=== PATIENT | female | born 1960 | race Caucasian/White ===

== ENCOUNTER 2020-01-05 09:05 | Emergency (ER) | payer SELFPAY ==
[2020-01-05 09:08] VITALS: BP 172/120; PULSE 97; RESP 16; TEMP 36.6; O2SAT 97; BMI 29.2
--- NOTE | 2020-01-05 09:21 | ECG_ITS ---
Measurements Intervals [place] Rate: 103 P: 34 WV: 142 QRS: 45 QRSD: 77 T: 56 QT: 328 QTc: 430 SINUS TACHYCARDIA Compared to ECG 11/08/2018 22:04:28 Sinus rhythm no longer present Electronically Signed On 01-05-2020 14:07:25 HEAT TREAT INSPECTOR by Pauline Alvarez M.D. [email or web address]
--- NOTE | 2020-01-05 09:22 | XR_ITS ---
WS: [id number] XR chest 1V portable [id number] REASON FOR EXAM: admission FINDINGS: The heart and mediastinal interfaces are normal. The lung fischer are well aerated. There is no pneumonia, pleural effusion, pulmonary edema, or mass e ffect. The hilum and apices are normal. No osseous abnormalities. XR/XR chest 1V portable [id number] IMPRESSION: No active cardiopulmonary changes.
--- NOTE | 2020-01-05 09:24 | W.ED.CHESTPA ---
HPI - Chest Pain General: Chief Complaint: Chest Pain Stated Complaint: CP, H/A Time Seen by Provider: 01/05/20 09:10 History of Present Illness: HPI narrative: Patient presents here with chest pain headache. She has had the symptoms for approximately 2 to 1/2 days. Just had a recent medication change her hydrochlorothiazide was added to her losartan. Patient also stopped her anxiety medicine for a while and then started retaking it back yesterday. Patient also says that her reflux medication is not working for her and she has daily reflux. Said she feels tingly in her lips and her her fingers and feet. Says her blood pressures been going up by the end the day. MD complaint: chest pain Pertinent past history: coronary artery disease Onset (ago): day(s) (2) Associated symptoms: Deny abdominal pain, dyspnea, fever(s), nausea or vomiting Review of Systems Const: Denies: fever, chills or body aches Eyes: Denies: change in vision or blurry vision ENMT: Denies: throat pain or nasal congestion Card: Reports: chest pain and swelling of feet/ankles; Denies: shortness of breath on exertion Resp: Denies: shortness of breath, productive cough or non-productive cough GI: Reports: heartburn/indigestion; Denies: abdominal pain, nausea or vomiting Musc: Denies: extremity pain Skin/Breast: Denies: rash Neuro: Denies: headache Psych: Reports: other (Tingling); Denies: anxiety or depression Luke/Lymph: Denies: easy bruising PFSH ED PFSH: Social History Smoking and tobacco status: former smoker Physical Exam Const: COMMON NORMALS: no apparent distress, average body habitus and oriented x3 HENMT: COMMON NORMALS: normocephalic HEAD & SCALP: normal to inspection and normocephalic FACE & SINUS: normal facial exam Eye: COMMON NORMALS: conjunctivae normal GENERAL EYE: normal appearance of both eyes CONJUNCTIVA: Yes conjunctivae normal Neck/C-Spine: COMMON NORMALS: no JVD Chest: COMMONS NORMALS: inspection of chest normal Resp: COMMON NORMALS: normal respiratory effort and clear to auscultation bilaterally AUSCULTATION: clear to auscultation bilaterally Cardio: COMMON NORMALS: no JVD, regular rate and regular rhythm RATE: regular rate RHYTHM: regular rhythm GI: COMMON NORMALS: normal to inspection, nondistended, normoactive bowel sounds Extremity: COMMON NORMALS: normal to inspection and full ROM Neuro: COMMON NORMALS: oriented x3 Course Vital Signs: Vital signs: Vital Signs Temperature 98 F 01/05/20 09:08 Pulse Rate 97 01/05/20 09:08 Respiratory Rate 16 01/05/20 09:08 Blood Pressure 172/120 01/05/20 09:08 Pulse Oximetry 98 01/05/20 09:27 MDM - Chest Pain MDM Narrative: Medical decision making narrative: heart score,-1-2. discussed case with Dr. Isidro Lab Data: Labs: Lab Results 01/05/20 01/05/20 01/05/20 Range/Units 09:24 09:24 09:24 WBC 6.3 (4.0-10.0) 10^3/ uL RBC 4.60 (4.1-5.3) 10^6/u L Hgb 13.8 (11.5-15.3) g/dL Hct 41.6 (37.0-47.0) % MCV 90.4 (81-99) fL MCH 30.0 (28.0-34.0) pg MCHC 33.2 (30.0-36.0) g/dL RDW 11.9 L (12.1-15.1) % Plt Count 284 (130-400) 10^3/c mm MPV 9.2 (7.4-10.4) fL Neut % (Auto) 62.5 % Lymph % (Auto) 28.3 % [place] % (Auto) 4.8 % Eos % (Auto) 3.4 % Baso % (Auto) 0.5 % Neut # (Auto) 3.9 (1.8-7.7) 10^3/u L Lymph # (Auto) 1.8 (0.8-4.8) 10^3/u L [place] # (Auto) 0.3 (0.2-0.9) 10^3/u L Eos # (Auto) 0.2 (0.0-0.8) 10^3/u L Baso # (Auto) 0.0 (0.0-0.1) 10^3/u L Nucleated RBC % (a uto) 0 % Nucleated RBCs # 0.0 /100WBC Sodium 137 (136-145) mmol/L Potassium 3.8 (3.5-5.1) mmol/L Chloride 97 L (98-107) mmol/L Carbon Dioxide 26 (22-29) mmol/L Anion Gap 17.8 (5-19) BUN 15 (6-20) mg/dL Creatinine 0.6 (0.5-0.9) mg/dL GFR Calculation 102.3 (90-130) mL/min Glucose 117 H (65-115) mg/dL Calcium 10.0 (8.5-10.5) mg/dL Total Bilirubin 0.4 (0.15-1.2) mg/dL AST 35 H (0-32) U/L ALT 69 H (0-33) U/L Alkaline Phosphata se 103 (35-105) IU/L Troponin T Baselin e 6 (0-10) ng/mL Total Protein 7.9 (6.6-8.7) g/dL Albumin 4.3 (3.5-5.2) g/dL Globulin 3.6 (1.3-4.6) g/dL EKG Data^: EKG 1: EKG interpretation date: 01/05/20 EKG interpretation time: 09:17 Interpretation: Sinus tachy, 103 bpm, AK-142, qrs 77ms EKG 2: EKG interpretation date: 01/05/20 EKG interpretation time: 11:38 Interpretation: NSR, rate 87 bpm, AK-137ms, QRS 86ms Discharge Plan Discharge Prescriptions: No Action losartan-hydrochlorothiazide 100-25 mg tablet 1 tab PO DAILY RF: 0 simvastatin 10 mg tablet 10 mg PO DAILY RF: 0 pantoprazole [Protonix] 40 mg tablet,delayed release (DR/EC) 40 mg PO DAILY RF: 0 celecoxib [Celebrex] 200 mg capsule 200 mg PO BID Qty: 60 RF: 2 melatonin 5 mg/15 mL Liquid 10 mg PO BEDTIME RF: 0 Coding Level of Care Code ED Clinical Application Specialist for Chg Fwd Exam Comprehensive
[2020-01-05 09:27] VITALS: O2SAT 98
[2020-01-05 09:29] LABS: Basophils % 0.5 %; Eosinophils # 0.2 10^3/uL (0.0-0.8); Eosinophils % 3.4 %; Hematocrit 41.6 % (37.0-47.0); Hemoglobin 13.8 g/dL (11.5-15.3); Lymphocytes # 1.8 10^3/uL (0.8-4.8); Lymphocytes % 28.3 %; Mean Corpuscular HGB Conc 33.2 g/dL (30.0-36.0); Mean Corpuscular Volume 90.4 fL (81-99); Mean Platelet Volume 9.2 fL (7.4-10.4); Monocytes # 0.3 10^3/uL (0.2-0.9); Monocytes % 4.8 %; Neutrophils # 3.9 10^3/uL (1.8-7.7); Neutrophils % 62.5 %; Nucleated Red Blood Cells % 0 %; Platelet Count 284 10^3/cmm (130-400); Red Cell Distribution Width 11.9 % (12.1-15.1); White Blood Count 6.3 10^3/uL (4.0-10.0)
[2020-01-05] MEDS: LORazepam 2 mg/mL INJ 1 mL 1 MG IVP (09:33)
[2020-01-05 09:52] LABS: Alanine Aminotransferase 69 U/L (0-33); Albumin Level 4.3 g/dL (3.5-5.2); Alkaline Phosphatase 103 IU/L (35-105); Anion Gap 17.8 (5-19); Aspartate Amino Transferase 35 U/L (0-32); Blood Urea Nitrogen 15 mg/dL (6-20); Carbon Dioxide 26 mmol/L (22-29); Chloride 97 mmol/L (98-107); Globulin 3.6 g/dL (1.3-4.6); Glomerular Filtration Rate 102.3 mL/min (90-130); Glucose 117 mg/dL (65-115); Potassium 3.8 mmol/L (3.5-5.1); Sodium 137 mmol/L (136-145); Total Bilirubin 0.4 mg/dL (0.15-1.2); Total Protein 7.9 g/dL (6.6-8.7)
[2020-01-05 09:54] LABS: Troponin(5th) Baseline 6 ng/mL (0-10)
[2020-01-05] MEDS: ketorolac 30 mg/mL INJ IVP (11:01)
[2020-01-05 11:43] LABS: Troponin 5 2HR Delta 0 ABS# (0-10)
[2020-01-05 12:07] VITALS: BP 117/84; PULSE 66; RESP 17; O2SAT 98
--- NOTE | 2020-01-05 15:21 | ECG_ITS ---
Measurements Intervals [place] Rate: 87 P: 34 MD: 137 QRS: 45 QRSD: 86 T: 45 QT: 364 QTc: 439 SINUS RHYTHM Compared to ECG 11/08/2018 22:04:28 No significant changes Electronically Signed On 01-05-2020 14:10:06 IT INFRASTRUCTURE ENGINEER by Pauline Alvarez M.D. [id number]
== END 2020-01-05 12:08 | disposition home or self-care (01) ==
PROVIDERS: Emergency Provider Nurse Practitioner Family; Family Provider Nurse Practitioner; PCP Nurse Practitioner
DX: R07.9 Chest pain, unspecified (principal); R51 Headache; R20.2 Paresthesia of skin; K21.9 Gastro-esophageal reflux disease without esophagitis; I25.10 Atherosclerotic heart disease of native coronary artery without angina pectoris; Z87.891 Personal history of nicotine dependence
CPT/HCPCS: 36415; 71045; 80053; 84484; 85025; 93005; 96374; 96375; 99283; 99284; J1885; J2060

== ENCOUNTER 2020-03-14 12:26 | Emergency (ER) | payer SELFPAY ==
[2020-03-14 12:27] VITALS: BP 165/104; PULSE 79; RESP 16; TEMP 36.6; O2SAT 94; BMI 31.2
--- NOTE | 2020-03-14 12:34 | ED_ITS ---
HPI - Headache General: Chief Complaint: Dizziness Stated Complaint: HYPERTENSION/ HEADACHE Time Seen by Provider: 03/14/20 12:33 Source: patient Mode of arrival: ambulatory Limitations: no limitations History of Present Illness: HPI Narrative: Patient comes in today for complaints of shortness of breath, numbness, and dizziness. Patient works at [employer] and was wearing a mask per requirement during the pandemic. Patient reports feeling odd then becoming more short of breath and getting numb all over along with dizziness. Patient believes she might be just got overheated. Patient does report continued numbness and complaints of a headache now. Patient reports that her blood pressure was high but has slowly started coming down since arriving at the ER. Patient reported a blood pressure of [address] [employer]. Patient is a cooperative and responds well to questioning. MD elicited complaint: headache Review of Systems General: Reports: 10 or more systems reviewed and unremarkable except in HPI and below Resp: Reports: shortness of breath Neuro: Reports: headache and dizziness PFS ED PFSH: Social History Smoking and tobacco status: never smoked Second hand smoke exposure: No Smoking risk assessment/counseling performed?: No Alcohol intake: never Desire information about alcohol rehabilitation?: No Counseling given: No Desire information about substance/drug rehabilitation?: No Counseling given: No Lives independently: Yes Household members: none Housing: House Marital status: Single service: No Current occupational status: employed Current occupation: [employer] History of recent travel: No Current gender identity: Female Physical Exam Const: COMMON NORMALS: no apparent distress and oriented x3 GENERAL APPEARANCE: cooperative HENMT: COMMON NORMALS: normocephalic, TM's normal bilaterally and external nose normal HEAD & SCALP: normal to inspection and normocephalic NOSE: external nose normal TYMPANIC MEMBRANE: TM's normal bilaterally MOUTH: oral and palatal mucosa normal THROAT: posterior oropharynx normal Eye: GENERAL EYE: normal appearance of both eyes Neck/C-Spine: COMMON NORMALS: full ROM Lymph: LYMPHATIC: no lymphadenopathy noted Chest: COMMONS NORMALS: inspection of chest normal Resp: COMMON NORMALS: normal respiratory effort EFFORT & INSPECTION: Yes able to speak in complete sentences Cardio: COMMON NORMALS: regular rate and regular rhythm RATE: regular rate RHYTHM: regular rhythm GI: COMMON NORMALS: non-tender : COMMON NORMALS: Yes no CVA tenderness BLADDER/KIDNEY EXAM: Yes no CVA tenderness Back/Pelvis: COMMON NORMALS: no CVA tenderness and thoracic and lumbar spine normal to inspection Extremity: COMMON NORMALS: normal to inspection Neuro: COMMON NORMALS: oriented x3 and moves all extremities Psych: COMMON NORMALS: mental status grossly normal and cooperative Skin: COMMON NORMALS: no rashes or lesions noted GENERAL SKIN EXAM: no rashes or lesions noted Course ED course: 1350, patient reports improvement in headache. Reports dull frontal type headache now. Patient states that she would like something more for her headache. Blood pressure is down to 112 systolic. Vital signs are normal otherwise. Awaiting lab report. CT of the head and chest x-ray were both normal. Vital Signs: Vital signs: Vital Signs Temperature 97.9 F 03/14/20 12:27 Pulse Rate 79 03/14/20 12:27 Respiratory Rate 16 03/14/20 12:36 Blood Pressure 165/104 03/14/20 12:27 Pulse Oximetry 94 03/14/20 12:27 MDM - Headache MDM Narrative: Medical decision making narrative: Patient comes in today with complaints of headache and elevated blood pressure. Patient reports that she was at work and became overheated and felt well faint then started having a significant headache. Patient been started on some new medication for weight loss and believes that in combination with having to wear a mask at work caused her to overheat. Exam notes respirations are even lungs are clear to auscultation. Patient denied any chest pain. Abdomen soft nontender. No edema in extremities was noted. Vital signs were normal except for elevated blood pressure on arrival. Differential diagnosis includes near syncope, ACS, CVA, intracranial bleeding, adverse drug effect, dehydration. Laboratory values were normal with the first troponin being normal. Patient recovered and had resolution of headache after treatment with metoclopramide and second dosing with troponin and dexamethasone. Reviewed exam with patient with recommendations for further treatment for near syncope and headache with need for follow-up with primary care. Patient reported understanding and agreed to plan with recommendations. Lab Data: Labs: Lab Results 03/14/20 03/14/20 03/14/20 Range/Units 12:50 12:50 14:08 WBC 8.3 (4.0-10.0) 10^3/ uL RBC 4.24 (4.1-5.3) 10^6/u L Hgb 13.4 (11.5-15.3) g/dL Hct 40.3 (37.0-47.0) % MCV 95.0 (81-99) fL MCH 31.6 (28.0-34.0) pg MCHC 33.3 (30.0-36.0) g/dL RDW 12.3 (12.1-15.1) % Plt Count 285 (130-400) 10^3/c mm MPV 10.2 (7.4-10.4) fL Neut % (Auto) 73.7 % Lymph % (Auto) 19.2 % [place] % (Auto) 4.6 % Eos % (Auto) 1.6 % Baso % (Auto) 0.4 % Neut # (Auto) 6.1 (1.8-7.7) 10^3/u L Lymph # (Auto) 1.6 (0.8-4.8) 10^3/u L [place] # (Auto) 0.4 (0.2-0.9) 10^3/u L Eos # (Auto) 0.1 (0.0-0.8) 10^3/u L Baso # (Auto) 0.0 (0.0-0.1) 10^3/u L Nucleated RBC % (a uto) 0 % Nucleated RBCs # 0.0 /100WBC Sodium (136-145) mmol/L Potassium (3.5-5.1) mmol/L Chloride (98-107) mmol/L Carbon Dioxide (22-29) mmol/L Anion Gap (5-19) BUN (6-20) mg/dL Creatinine (0.5-0.9) mg/dL GFR Calculation (90-130) mL/min Glucose (65-115) mg/dL Calculated Osmolal ity (285-295) mOsm/k g Calcium (8.5-10.5) mg/dL Total Bilirubin (0.15-1.2) mg/dL AST (0-32) U/L ALT (0-33) U/L Alkaline Phosphata se (35-105) IU/L Troponin T Baselin e (0-10) ng/mL Total Protein (6.6-8.7) g/dL Albumin (3.5-5.2) g/dL Globulin (1.3-4.6) g/dL Urine Color Straw (Yellow) Urine Appearance Clear (CLEAR) Urine pH 7 (5-7) Ur Specific Gravit y 1.005 (1.005-1.030) Urine Protein Neg (Negative) Urine Glucose (UA) Norm (Normal) Urine Ketones Negative (Negative) Urine Blood Neg (Negative) Urine Nitrate Negative (Negative) Urine Bilirubin Neg (NEGATIVE) Urine Urobilinogen Norm (Negative) mg/dL Ur Leukocyte Genesis ase Negative (Negative) Urine Opiates Scre en Negative (Negative) ng/mL Ur Barbiturates Sc reen Negative (Negative) ng/mL Ur Phencyclidine S crn Negative (Negative) ng/mL Ur Amphetamines Sc reen Negative (Negative) ng/mL U Benzodiazepines Scrn Positive H (Negative) ng/mL Urine Cocaine Scre en Negative (Negative) ng/mL U Marijuana (THC) Screen Negative (Negative) ng/mL 03/14/20 03/14/20 Range/Units 14:08 14:08 WBC (4.0-10.0) 10^3/ uL RBC (4.1-5.3) 10^6/u L Hgb (11.5-15.3) g/dL Hct (37.0-47.0) % MCV (81-99) fL MCH (28.0-34.0) pg MCHC (30.0-36.0) g/dL RDW (12.1-15.1) % Plt Count (130-400) 10^3/c mm MPV (7.4-10.4) fL Neut % (Auto) % Lymph % (Auto) % [place] % (Auto) % Eos % (Auto) % Baso % (Auto) % Neut # (Auto) (1.8-7.7) 10^3/u L Lymph # (Auto) (0.8-4.8) 10^3/u L [place] # (Auto) (0.2-0.9) 10^3/u L Eos # (Auto) (0.0-0.8) 10^3/u L Baso # (Auto) (0.0-0.1) 10^3/u L Nucleated RBC % (a uto) % Nucleated RBCs # /100WBC Sodium 140 (136-145) mmol/L Potassium 4.2 (3.5-5.1) mmol/L Chloride 102 (98-107) mmol/L Carbon Dioxide 26 (22-29) mmol/L Anion Gap 16.2 (5-19) BUN 18 (6-20) mg/dL Creatinine 0.8 (0.5-0.9) mg/dL GFR Calculation 73.4 L (90-130) mL/min Glucose 99 (65-115) mg/dL Calculated Osmolal ity 287 (285-295) mOsm/k g Calcium 9.7 (8.5-10.5) mg/dL Total Bilirubin 0.4 (0.15-1.2) mg/dL AST 26 (0-32) U/L ALT 47 H (0-33) U/L Alkaline Phosphata se 86 (35-105) IU/L Troponin T Baselin e 6 (0-10) ng/mL Total Protein 7.0 (6.6-8.7) g/dL Albumin 4.7 (3.5-5.2) g/dL Globulin 2.3 (1.3-4.6) g/dL Urine Color (Yellow) Urine Appearance (CLEAR) Urine pH (5-7) Ur Specific Gravit y (1.005-1.030) Urine Protein (Negative) Urine Glucose (UA) (Normal) Urine Ketones (Negative) Urine Blood (Negative) Urine Nitrate (Negative) Urine Bilirubin (NEGATIVE) Urine Urobilinogen (Negative) mg/dL Ur Leukocyte Genesis ase (Negative) Urine Opiates Scre en (Negative) ng/mL Ur Barbiturates Sc reen (Negative) ng/mL Ur Phencyclidine S crn (Negative) ng/mL Ur Amphetamines Sc reen (Negative) ng/mL U Benzodiazepines Scrn (Negative) ng/mL Urine Cocaine Scre en (Negative) ng/mL U Marijuana (THC) Screen (Negative) ng/mL Discharge Plan Discharge Patient Disposition: Home, Self-Care Clinical Impression: Near syncope Headache Qualifiers: Headache type: unspecified Headache chronicity pattern: acute headache Intractability: not intractable Qualified Code(s): R51 - Headache Condition: Stable Prescriptions: No Action Contrave 8-90 mg tablet extended release 1 tab PO Q12H Qty: 60 RF: 0 furosemide [Lasix] 20 mg tablet 20 mg PO BID Qty: 180 RF: 1 losartan 100 mg tablet 100 mg PO DAILY Qty: 90 RF: 1 propranolol 10 mg tablet 10 mg PO Q12H Qty: 180 RF: 1 simvastatin 10 mg tablet 10 mg PO DAILY Qty: 90 RF: 1 acyclovir 800 mg tablet 800 mg PO QID Qty: 40 RF: 0 celecoxib [Celebrex] 200 mg capsule 200 mg PO BID Qty: 180 RF: 1 pantoprazole [Protonix] 40 mg tablet,delayed release (DR/EC) 40 mg PO DAILY Qty: 90 RF: 1 melatonin 5 mg/15 mL Liquid 10 mg PO BEDTIME RF: 0 Vitamin C 1,000 mg Tablet 1,000 mg PO DAILY RF: 0 Aspir-81 81 mg Tablet,Delayed Release (Dr/Ec) 81 mg PO DAILY RF: 0 hydroxyzine HCl 25 mg tablet 25 mg PO BID PRN (Reason: Anxiety) RF: 0 Ativan 0.5 mg tablet 0.5 mg PO BEDTIME RF: 0 Zovirax 5 % cream 1 applic TOPICAL BID PRN (Reason: unknown) RF: 0 Referrals: Isak Lowery, PRODUCTION TESTER-C [Primary Care Provider] - Discharge Diet: Usual diet Discharge Activity: Increase activity as tolerated Patient Instructions: Hypertension (ED) Activity Restrictions/Additional Instructions: Home and rest, Drink plenty of fluids, Healthy diet and exercise. Follow-up with primary care in one week. Return to ER as needed for chest pain, or new concerns Stand Alone Forms: Work/School Release Coding Level of Care Code ED Project Account Manager for Quyen Fwd Exam Comprehensive
[2020-03-14 12:36] VITALS: RESP 16
--- NOTE | 2020-03-14 12:42 | CT_ITS ---
WS: [id number] CT HEAD NONCONTRAST HISTORY: numbness, htn, weakness TECHNIQUE: Contiguous axial imaging performed through the brain in 2.5 mm imaging. Bone and soft tiss ue windows. Sagittal and coronal reformats reviewed. All CT scans at [facility] use at le ast one of these dose optimization techniques: automated exposure control; mA and/or kV adjustment pe r patient size (includes targeted exams where dose is matched to clinical indication); or iterative r econstruction. DLP: 739.66 mGy.cm COMPARISON: 11/08/2018 No acute intracranial hemorrhage, midline shift or mass effect. Mild atrophy and mild chronic microvascular ischemic disease. No prior infarcts. Lacunar infarct in t he RIGHT caudate head. Ventricles: Normal size with no hydrocephalus. Paranasal sinuses: As visualized are clear. Mastoid air cells: Well pneumatized. Calvarium and scalp: Skull is intact with no soft tissue edema or swelling. CT/CT head wo con* [id number] IMPRESSION: Negative head CT.
--- NOTE | 2020-03-14 12:42 | ECG_ITS ---
Measurements Intervals [place] Rate: 73 P: 33 GA: 130 QRS: 42 QRSD: 82 T: 48 QT: 380 QTc: 421 SINUS RHYTHM LOW QRS VOLTAGE IN PRECORDIAL LEADS [QRS DEFLECTION < 1.0 mV IN CHEST LEADS] Compared to ECG 01/05/2020 11:28:13 Low QRS voltage now present Electronically Signed On 03-15-2020 16:17:56 CDT by Allyson Marx M.D. [id number]
--- NOTE | 2020-03-14 12:42 | XR_ITS ---
WS: [id number] PORTABLE CHEST HISTORY: short of breath COMPARISON: 01/05/2020 Focal area of subsegmental atelectasis at the RIGHT lung base. Otherwise lungs are clear. No pleural effusion or pneumothorax. Cardiac size: Normal. Mediastinum/Aorta: Normal mediastinum. No osseous abnormality seen. XR/XR chest 1V portable [id number] IMPRESSION: Minimal subsegmental RIGHT lower lobe atelectasis.
[2020-03-14] MEDS: metoclopramide 5 mg/mL SDV 2 mL 10 MG IVP (13:10)
[2020-03-14 13:16] LABS: Add Urine Microscopic? NO
[2020-03-14 13:18] LABS: Bilirubin Urine Neg (NEGATIVE); Blood Urine Neg (Negative); Glucose Urine UA Norm (Normal); Ketones Urine Negative (Negative); Leukocyte Esterase Urine Negative (Negative); Nitrate Urine Negative (Negative); Protein Urine Neg (Negative); Specific Gravity, Urine 1.005 (1.005-1.030); Urine Appearance Clear (CLEAR); Urine Color Straw (Yellow); Urobilinogen Urine Norm (Negative); pH Urine 7 (5-7)
[2020-03-14 13:27] LABS: Amphetamines Screen Urine Negative (Negative); Barbiturates Screen Urine Negative (Negative); Benzodiazepines Screen Urine Positive (Negative); Cocaine Screen Urine Negative (Negative); Opiate Screen Urine Negative (Negative); PCP Screen Urine Negative (Negative); THC Screen Urine Negative (Negative)
[2020-03-14] MEDS: dexamethasone 10 mg/mL INJ IVP (14:38)
[2020-03-14] MEDS: ketorolac 30 mg/mL INJ 15 MG IVP (14:38)
[2020-03-14 14:40] LABS: Basophils % 0.4 %; Eosinophils # 0.1 10^3/uL (0.0-0.8); Eosinophils % 1.6 %; Hematocrit 40.3 % (37.0-47.0); Hemoglobin 13.4 g/dL (11.5-15.3); Lymphocytes # 1.6 10^3/uL (0.8-4.8); Lymphocytes % 19.2 %; Mean Corpuscular HGB Conc 33.3 g/dL (30.0-36.0); Mean Corpuscular Hemoglobin 31.6 pg (28.0-34.0); Mean Platelet Volume 10.2 fL (7.4-10.4); Monocytes # 0.4 10^3/uL (0.2-0.9); Monocytes % 4.6 %; Neutrophils # 6.1 10^3/uL (1.8-7.7); Neutrophils % 73.7 %; Nucleated Red Blood Cells % 0 %; Platelet Count 285 10^3/cmm (130-400); Red Blood Count 4.24 10^6/uL (4.1-5.3); Red Cell Distribution Width 12.3 % (12.1-15.1); White Blood Count 8.3 10^3/uL (4.0-10.0)
[2020-03-14 14:47] LABS: Alanine Aminotransferase 47 U/L (0-33); Albumin Level 4.7 g/dL (3.5-5.2); Alkaline Phosphatase 86 IU/L (35-105); Anion Gap 16.2 (5-19); Aspartate Amino Transferase 26 U/L (0-32); Blood Urea Nitrogen 18 mg/dL (6-20); Calcium 9.7 mg/dL (8.5-10.5); Carbon Dioxide 26 mmol/L (22-29); Chloride 102 mmol/L (98-107); Globulin 2.3 g/dL (1.3-4.6); Glomerular Filtration Rate 73.4 mL/min (90-130); Glucose 99 mg/dL (65-115); Osmolality Calculated 287 mOsm/kg (285-295); Potassium 4.2 mmol/L (3.5-5.1); Sodium 140 mmol/L (136-145); Total Bilirubin 0.4 mg/dL (0.15-1.2)
[2020-03-14 14:50] LABS: Troponin(5th) Baseline 6 ng/mL (0-10)
[2020-03-14 15:13] VITALS: BP 124/82; PULSE 78; RESP 16; O2SAT 97
== END 2020-03-14 15:14 | disposition home or self-care (01) ==
PROVIDERS: Emergency Provider Nurse Practitioner Family; Family Provider Nurse Practitioner; PCP Nurse Practitioner
DX: R51 Headache (principal); R55 Syncope and collapse; Z79.82 Long term (current) use of aspirin
CPT/HCPCS: 12345; 70450; 71045; 80053; 80306; 81003; 84484; 85025; 93005; 96374; 96375; 99281; 99284; J1100; J1885; J2765

== ENCOUNTER → 2020-04-22 12:12 | Outpatient (BNVA) | payer SELFPAY | PROVIDERS: Family Provider Nurse Practitioner; PCP Nurse Practitioner; Visit Provider Family Medicine | DX: W57.XXXA Bitten or stung by nonvenomous insect and other nonvenomous arthropods, initial encounter (principal); E66.9 Obesity, unspecified | CPT/HCPCS: 84443; 86618; 86666; 86757 ==

== ENCOUNTER → 2021-02-05 13:10 | Outpatient (BNVA) | payer OTHER, SELFPAY | PROVIDERS: Family Provider Nurse Practitioner; PCP Nurse Practitioner; Visit Provider Nurse Practitioner Family | DX: R53.83 Other fatigue (principal); M25.511 Pain in right shoulder; B02.29 Other postherpetic nervous system involvement; G47.00 Insomnia, unspecified; K21.9 Gastro-esophageal reflux disease without esophagitis; F41.9 Anxiety disorder, unspecified; E78.5 Hyperlipidemia, unspecified; R73.9 Hyperglycemia, unspecified | CPT/HCPCS: 80053; 80061; 82306; 82607; 83036; 84443; 85025 ==

== ENCOUNTER → 2021-02-12 11:40 | Outpatient (BNVA) | payer OTHER, SELFPAY | PROVIDERS: Family Provider Nurse Practitioner; PCP Nurse Practitioner; Visit Provider Family Medicine | DX: M21.612 Bunion of left foot (principal); M79.672 Pain in left foot; M25.572 Pain in left ankle and joints of left foot | CPT/HCPCS: 73610; 73630 ==

== ENCOUNTER → 2021-08-19 17:25 | Outpatient (BNVA) | payer SELFPAY | PROVIDERS: Family Provider Nurse Practitioner; PCP Nurse Practitioner; Visit Provider Family Medicine | DX: I10 Essential (primary) hypertension (principal); K21.9 Gastro-esophageal reflux disease without esophagitis; E78.5 Hyperlipidemia, unspecified; F41.9 Anxiety disorder, unspecified; G47.00 Insomnia, unspecified | CPT/HCPCS: 80053; 80061; 84443; 85025 ==